=== PATIENT | male | born 1990 | race Caucasian/White ===

== ENCOUNTER 2017-04-22 07:16 | Emergency (ER) | payer OTHER ==
[~2017-04-22] VITALS: Ht 177.8 cm; Wt 86.3 kg
[2017-04-22] MEDS ORDERED: TETRACAINE 0.5% OPHTH SOLN 4ML OD ONE (08:00)
[2017-04-22] MEDS ORDERED: FLUORESCEIN OPHTH 1 MG STRIP OD ONE (08:00)
[2017-04-22] MEDS ORDERED: ERYTOIN8 OD (08:12)
[2017-04-22 08:26] VITALS: BP 128/80
== END 2017-04-22 08:27 | disposition home or self-care (01) ==
LOC: M ED 07:16
DX: S05.01XA Injury of conjunctiva and corneal abrasion without foreign body, right eye, initial encounter (principal); W22.8XXA Striking against or struck by other objects, initial encounter; Y92.89 Other specified places as the place of occurrence of the external cause; Y93.89 Activity, other specified; Y99.0 Civilian activity done for income or pay